=== PATIENT | female | born 1970 | race African-American/Black ===

== ENCOUNTER 2020-01-25 18:33 | Emergency (ER) | payer OTHER ==
[~2020-01-25] VITALS: Ht 162.6 cm; Wt 81.7 kg
[2020-01-25] MEDS ORDERED: PREDNISONE 20 M20 M1 PO (19:57)
[2020-01-25] MEDS ORDERED: VENTOLIN HFA 1818 GM INH (19:57)
[2020-01-25] MEDS ORDERED: PROMETH-CODEIN 65 ML PO (19:57)
[2020-01-25 20:22] VITALS: BP 151/97
== END 2020-01-25 20:26 | disposition home or self-care (01) ==
LOC: ER 18:33
DX: J45.909 Unspecified asthma, uncomplicated (principal); F17.210 Nicotine dependence, cigarettes, uncomplicated